=== PATIENT | female | born 1995 | race Caucasian/White ===

== ENCOUNTER 2025-05-03 06:41 | Day surgery (SDC) | payer OTHER, SELFPAY ==
[2025-04-18 11:59] VITALS: BMI 19.0
[2025-05-03] VITALS (7 sets, daily range): BP systolic 109–121; BP diastolic 69–87; PULSE 59–95; RESP 14–18; TEMP 36.7–37; O2SAT 100
--- OUTSIDE RECORDS SUMMARY | 2025-05-03 06:49 | XMS_ITS | Clinical Summary ---
Author Organization [facility] Address [address] [place] [address] Care Team Providers Care Business Intelligence Analyst Name Role Phone Peter Shane [facility] Primary Care Provider [phone] Allergies Active Allergy Reactions Criticality Noted Date Comments Sulfa Antibiotics Hives 06/09/2023 Medications ferrous gluconate (FERGON) 324 (38 FE) MG tablet Take 1 tablet (324 mg total) by mouth daily. Active famotidine (PEPCID) 20 MG tablet Take 1 tablet (20 mg total) by mouth every 12 (twelve) hours as needed. 60 tablet 06/11/2023 Active Active Problems Problem Noted Date Diagnosed Date Encounter for induction of labor ([facility]) 06/09 Family History Medical History Relation Comments Hypertension Father Eczema Mother Relation Status Comments Father Mother Social History Tobacco Use Types Packs/Day Years Used Date Smoking Tobacco: Never Passive Smoke Exposure: Never Smokeless Tobacco: Never Tobacco Cessation:Counseling Given: Not Answered Alcohol Use Standard Drinks/Week Comments Not Currently 0 (1 standard drink = 0.6 oz pur e alcohol) Humiliation, Afraid, Rape, and Kick questionnair e Answer Date Recorded Within the last year, have y ou been afraid of your partner or ex-partner? No 06/09/2023 Within the last year, have y ou been humiliated or emotionally abused in other ways by your partner or ex-partner? No Within the last year, have y ou been kicked, hit, slapped, or otherwise physically hurt by your partner or ex-partner? No 06/09/2023 Within the last year, have y ou been raped or forced to have any kind of sexual activity by your partner or ex-partner? No 06/09/2023 Social Connection and Isolation Panel [NHANES] A nswer Date Recorded In a typical week, how many times do you talk on the phone with family, friends, or neighbors? Three times a week 06/09/20 How often do you get togethe r with friends or relatives? Three times a week 06/09/2023 How often do you attend chur ch or hinduism services? 1 to 4 times per year 06/09/2023 Do you belong to any clubs o r organizations such as shinto groups, unions, fraternal or athletic groups, or school groups? Yes 06/09/2023 How often do you attend meet ings of the clubs or organizations you belong to? 1 to 4 times per year 06/09/2023 Are you , , di vorced, , never , or living with a partner? 06/09/2023 AUDIT-C Answer Date Recorded Q1: How often do you have a drink containing alcohol? Never 06/09/2023 Q2: How many drinks containi ng alcohol do you have on a typical day when you are drinking? Patient does not drink Q3: How often do you have si x or more drinks on one occasion? Never 06/09/2023 Overall Financial Resource Strain (CARDIA) Answe r Date Recorded How hard is it for you to pa y for the very basics like food, housing, medical care, and heating? Not hard at all 06/09/2023 [facility] - Occupational Stress Questionnaire Answer Date Recorded Do you feel stress - tense, restless, nervous, or anxious, or unable to sleep at night because your mind is troubled all the time - these days? Only a little 06/09/2023 Exercise Vital Sign Answer Date Recorde d On average, how many days pe r week do you engage in moderate to strenuous exercise (like a brisk walk)? 0 days 06/09/2023 On average, how many minutes do you engage in exercise at this level? 0 min 06/09/2023 Hunger Vital Sign Answer Date Recorded Within the past 12 months, y ou worried that your food would run out before you got the money to buy more. Never true 06/09/20 23 Within the past 12 months, t he food you bought just didn't last and you didn't have money to get more. Never true 06/09/2023 PRAPARE - Transportation Answer Date Re corded In the past 12 months, has l ack of transportation kept you from medical appointments or from getting medications? No 05/31 In the past 12 months, has l ack of transportation kept you from meetings, work, or from getting things needed for daily living? No 06/09/2023 Housing Stability Vital Sign Answer Dwayne e Recorded In the last 12 months, was t here a time when you were not able to pay the mortgage or rent on time? No 06/09/2023 In the last 12 months, how many places have you lived? 2 06/09/2023 In the last 12 months, was t here a time when you did not have a steady place to sleep or slept in a senior care (including now)? No 06/09/2023 Comments No Sex and Gender Information Value Date Recorded Sex Assigned at Not on file Legal Sex Female 3:34 PM CDT Gender Identity Not on file Sexual Orientation Not on file Last Filed Vital Signs Vital Sign Reading Time Taken Comments Blood Pressure 128/64 06/11/2023 12:49 PM CDT Pulse 83 06/11/2023 12:49 PM CDT Temperature 36.6 C (97.9 F) 06/11/2023 12:49 PM CDT Respiratory Rate 18 06/11/2023 12:59 PM CDT Oxygen Saturation 96% 06/10/2023 2:31 PM CDT Inhaled Oxygen Concentration - - Weight 74.4 kg (164 lb) 06/09/2023 5:00 PM CDT Height 170.2 cm (5' 7) 06/09/2023 5:00 PM CDT Body Mass Index 25.69 06/09/2023 5:00 PM CDT Plan of Treatment Health Maintenance Due Date Last Done Comments Cervical Cancer Screening Pa p Smear (Age 21 to 29) Every 3 Years 1995 Cervical Cancer Screening 1995 Annual Physical 1998 DTaP, Tdap and Td Vaccines ( 1 - Tdap) 2014 Hepatitis B Vaccines (1 of 3 - 19+ 3-dose series) 2014 HPV Vaccines (1 - 3-dose SCD M series) 2022 COVID-19 Vaccine (1 - 2023-2 5 season) 2024 Hepatitis C Completed 03/25/2023 Meningococcal B Vaccine Aged Out No l onger eligible based on patient's age to complete this topic Meningococcal Vaccine Aged Out No cj isela eligible based on patient's age to complete this topic Pneumococcal Vaccine: Pediat rics (0 to 5 Years) and At-Risk Patients (6 to 49 Years) Aged Out No longer eligi ble based on patient's age to complete this topic RSV Immunizations Under 20 Months Aged Out No longer eligible based on patient's age to complete this topic Procedures Procedure Name Priority Date/Time Associated Diagnosis Comments HEPATITIS C ANTIBODY Routine 03/25/2023 from Last 3 Months or Most Recently Relevant to Health Maintenance Results * HEPATITIS C ANTIBODY (03/25/2023) HEPATITIS C AB negative Narrative Resulting Agency Comment us Default History Genericprovider LABORATORY Final Result from Last 3 Months or Most Recently Relevant to Health Maintenance Insurance AETNA AETNA Advance Directives * Full Code (Latest Code Status on File) Date Activated Date Inactivated Comments 06/09/2023 7:01 PM 06/11/2023 5:47 PM Care Teams Business Intelligence Analyst Relationship Specialty Start Date End Date Peter Shane, [employer]INE OPERATOR- [address] [place] [address] PCP - General NURSE PRACTITIONER 06/09/23
[2025-05-03] MEDS: LACTATED RINGERS 1,000 ML 30 ML IV CONT (07:20)
[2025-05-03] MEDS: TRANEXAMIC ACID 1,000 MG/10 ML AMPUL 1000 MG IV PUSH (07:35)
--- NOTE | 2025-05-03 07:46 | P.PNAN_ITS ---
Anes - Initial Pre Proc Eval Procedure: Operation Date: 05/03/25 08:15 Proposed Procedures p Bilateral Breast Augmentation Mammoplasty - Pedro Pablo Murguia MD Date/Time: 05/03/25 07:46 Surgeon: Pedro Pablo Murguia MD Pre Op Diagnosis: Micromastia Patient Data Age: 29 Gender: F Height: 1.7 m Weight: 51.15 kg Last Vital Signs Temp 98.0 F 05/03/25 07:08 Pulse 59 L 05/03/25 07:08 Resp 16 05/03/25 07:08 BP 111/69 05/03/25 07:08 Pulse Ox 100 05/03/25 07:08 O2 Del Method Room Air 05/03/25 07:08 Allergies Allergy/AdvReac Type Severity Reaction Status Date / Time Sulfa (Sulfonamide Allergy Intermediate RASH Verified 05/03/25 07:06 Antibiotics) Home Medications ?Medication ?Instructions ?Recorded ?Confirmed ?Type multivitamin-folic acid 400 1 tablet PO DAILY 04/18/25 05/03/25 History mcg-biotin 2,000 mcg tablet ([id number]-[id number]-Tjrzn (reikodtx-bocte-tsqann)) Patient hx anesthesia problems: none Family hx anesthesia problems: none Results Review: All pre-operative results and documents have been reviewed as part of the pre- operative evaluation. [facility] Social History Social History Smoking status: Never smoker Second hand tobacco smoke exposure: No Alcohol intake: current Drinks per week: 0 Alcohol use details: RARELY Substance use: never Substance use type: does not use Living arrangements: alone Spiritual care concerns: No Anes - Eval Final PreProcedure Day of Procedure 05/03/25 07:46 Heart: regular rate and rhythm Lungs: clear to auscultation Airway: Mallampati scale class 1 Neurological: alert and oriented Last oral intake: >/= 8 hours ASA classification: I Anesthetic plan: proceed Anesthesia type and monitoring: general Results Review: All pre-operative results and documents have been reviewed as part of the pre- operative evaluation. Informed Consent: The patient's anesthetic plan and its attendant risks and benefits were discussed with the patient/family/POA. Questions were solicited and answers p rovided to the satisfaction of the patient/family/POA.
--- NOTE | 2025-05-03 08:03 | WPDHPUPDATE1 ---
History and Physical Update Update Date/Time: 05/03/25 08:03 History and Physical has been reviewed, including an updated exam of the patient. There are NO changes in the patient's condition. Risks, benefits, and alternatives have been discussed and questions answered. Patient agrees to proceed with procedure.
--- NOTE | 2025-05-03 08:04 | W.PM.PROC2 ---
Procedure Note - Detailed Date of Procedure 05/03/25 Pre-op Diagnosis Micromastia Post-op Diagnosis Same Procedure Performed Bilateral augmentation mammaplasty Surgeon Pedro Pablo Murguia MD Anesthesia General Findings Bilateral Jessie Cohesive 375cc Right: REF# [id number] SN [id number] Dual Plane 1 Left: REF# [id number] SN [id number] Dual Plane 1 Description of Procedure She is here today for bilateral breast augmentation. Previously and again today the risks, benefits, alternatives were discussed in extensive detail. I wanted her to be very realistic about the risks involved as well as expectations. We discussed aftercare and what to monitor for. Made sure answered all of her questions to her satisfaction today and consent was obtained. Marked in the preoperative holding area with their verification. The patient was taken to the operating room placed supine on the operating table. Anesthesia was provided by anesthesiology. A surgical time-out was taken. We cleansed the skin and 1% lidocaine and 0.25% Marcaine with epinephrine was used anesthetize as a field block. She was prepped and draped in a standard sterile fashion. Tegaderm nipple Mcdermott were placed. A 15 blade used to make an incision along the inframammary fold. Dissection was continued at 45 degree angle until the chest wall as identified. I incised the pectoralis major along its inferior border and completely released the inferior border leaving the medial border intact. I created a subpectoral pocket in the appropriate dimensions based on our preoperative planning for the implant. I then copiously irrigated with saline solution and verified a strict hemostasis. Next the use a triple antibiotic and Betadine containing solution to irrigate the pocket. I washed my gloves with the triple antibiotic and Betadine solution. We washed the implant immediately upon opening it with this solution and only opened it when we needed it. I used implant funnel and no-touch technique. The implant was introduced into the pocket using the funnel. Having verified positioning of the implant this was closed using 2-0 PDS followed by 3-0 Monocryl in a running subcuticular 4-0 Monocryl followed by tissue glue. Fluffs and surgical bra were placed. Patient was awoke and taken to PACU without difficulty. All instrument sponge counts were correct at the end of the case. Estimated Blood Loss 30 Drains No Packing No Pathology None sent Complications No immediate complications Condition Stable Disposition PACU
[2025-05-03] MEDS: ceFAZolin SODIUM 2 GM/20 ML SW SYRINGE IV PUSH (08:10)
[2025-05-03] MEDS: LIDO 1%/EPINEPHRINE 1:100,000 20 ML VIAL 30 ML INFILTRATE (08:20)
--- NOTE | 2025-05-03 09:32 | WPDANESPN ---
Anes - Prog Note Post-Op Date/Time: 05/03/25 09:32 Vital Signs: Last Vital Signs Temp 98.6 F 05/03/25 09:20 Pulse 95 05/03/25 09:20 Resp 14 05/03/25 09:20 BP 121/87 05/03/25 09:20 Pulse Ox 100 05/03/25 09:20 O2 Del Method Simple Face Mask 05/03/25 09:20 O2 Flow Rate 8 05/03/25 09:20 Pain Score (VAS): no I/O: Intake & Output 05/02/25 05/03/25 05/03/25 23:59 07:59 15:59 Intake Total 500 Balance 500 Patient Feedback: Patient satisfied with anesthetic care.
[2025-05-03] MEDS: oxyCODONE HCL (*CRX) 5 MG TAB IR PO (10:20)
== END 2025-05-03 10:50 | disposition home or self-care (01) ==
PROVIDERS: PCP Family Medicine; Visit Provider Surgery Plastic and Reconstructive Surgery
PROC: (CPT 19325; principal; 2025-05-03 08:15)
DX: Z41.1 Encounter for cosmetic surgery (principal); N64.82 Hypoplasia of breast
CPT/HCPCS: 19325